=== PATIENT | female | born 1950 | race Caucasian/White ===

== ENCOUNTER 2018-12-30 10:06 | Day surgery (SDC) | payer MEDICARE, OTHER ==
[2018-12-30] MEDS ORDERED: PROPOFOL 20 ML ×3 (11:20→12:28)
[2018-12-30] MEDS ORDERED: FENTAnyl 50 MCG/ML VIAL (11:20)
[2018-12-30] MEDS ORDERED: ONDANSETRON 4 MG INJ IV (11:30)
== END 2018-12-30 13:22 | disposition home or self-care (01) ==
LOC: GIL 10:06
DX: R19.4 Change in bowel habit (principal); K29.30 Chronic superficial gastritis without bleeding; K64.8 Other hemorrhoids; D12.4 Benign neoplasm of descending colon; I10 Essential (primary) hypertension; K44.9 Diaphragmatic hernia without obstruction or gangrene; K21.9 Gastro-esophageal reflux disease without esophagitis
CPT/HCPCS: 43239; 88305; 88312